=== PATIENT | female | born 1980 | race Caucasian/White ===

== ENCOUNTER 2017-03-01 05:28 | Inpatient (IN) | payer OTHER ==
[~2017-03-01] VITALS: Ht 162.6 cm; Wt 94.3 kg
[2017-03-01] MEDS ORDERED: Lactated Ringer's 1,000 ML IV PRN (07:03)
[2017-03-01] MEDS ORDERED: fentaNYL-PF 50 mCg/mL 2 mL Inj IVPUSH PRN (07:05)
[2017-03-01] MEDS ORDERED: Oxytocin 10 Unit/mL Inj IM PRN ×2 (07:05→12:10)
[2017-03-01] MEDS ORDERED: Hemorrhage Kit, Post Partum XX ONE ×2 (07:05→12:10)
[2017-03-01] MEDS ORDERED: Ondansetron 2 mg/mL 2 mL Inj IVPUSH PRN ×2 (07:05→09:35)
[2017-03-01] MEDS ORDERED: Methylergonovine 0.2 mg/mL Inj IM PRN ×2 (07:05→12:10)
[2017-03-01] MEDS ORDERED: Oxytocin 30 Units/500 mL LR 30 UNITS in IV Premix 1 EACH IV PRN ×3 (07:05→12:10)
[2017-03-01] MEDS ORDERED: Sodium Chloride LOK Flush 10 mL Syringe IVFLUSH PRN (07:05)
[2017-03-01] MEDS ORDERED: Carboprost 250 mCg/mL Inj IM PRN ×2 (07:05→12:10)
[2017-03-01 07:09] LABS: Mean Corpuscular Hemoglobin 29.4 pg (27.0-35.0); Mean Corpuscular Volume 88.7 fL (81-100)
[2017-03-01] MEDS ORDERED: BUPR150T8 PO (07:59)
[2017-03-01] MEDS ORDERED: OMEP40CA36 PO (07:59)
[2017-03-01] MEDS ORDERED: CALC-140 PO (07:59)
[2017-03-01] MEDS: Lactated Ringer's 1,000 ML IV SCH ×5 (08:06→20:09)
--- NOTE | 2017-03-01 08:32 | PCM.HPOB ---
Subjective Date of Service: March 01, 2017 Referring Provider: Admitting Physician: Johanna Archuleta MD Primary Care Physician: Arianne Akbar PA-C Attending Physician: Johanna Archuleta MD Chief Complaint Contractions and leakage of fluid History of Present History of Present Illness Patient is a 36-year-old 4 para 1-1-1-2 at 39 weeks and 6 days gestation with an estimated due date of 03/02/2017. Presented to the [facility] with contractions and spontaneous rupture membranes. Has a history of a delivery at 36 weeks. Past medical history significant for depression and marijuana use. He did have an abnormal 1 hour Glucola, but her three-hour glucose tolerance test was normal. labs: She is A positive, rubella immune, Varicella immune, RPR nonreactive, GBS negative, HIV negative, hepatitis B surface antigen negative, hepatitis C negative, OB History: (4), Para (2), Term (1), Pre-term (1) Obstetrical Complications: Other (Marijuanna use) Past Medical History Obstetrical History: 2 normal spontaneous vaginal deliveries Gynecologic History: Noncontributory Medical History: 1. History of depression 2. Marijuana use daily and remote history of methamphetamine use 3. History of PTD Hx Alcohol Use: No Hx Substance Use: Yes Past Family History Living Arrangement: with Family Genetic Screening/Counseling Genetic Screening/Counseling: Negative Allergy Coded Allergies: latex (Unverified Allergy, Mild, RASH, 03/01/17) Exam Lungs: Clear to Auscultation Heart: Exam Unremarkable Abdomen: Gravid (4-5/70/-2 , soft, anterior) Labs/Diagnostics Labs Laboratory Tests 72 Hours Test 03/01/17 06:00 White Blood Count 14.3th/mm3 (3.8-10.1) Red Blood Count 4.32mil/mm3 (3.90-5.20) Hemoglobin 12.7g/dL (12.0-15.6) Hematocrit 38.3% (35.0-46.0) Mean Corpuscular Volume 88.7fL (81-100) Mean Corpuscular Hemoglobin 29.4pg (27.0-35.0) Mean Corpuscular Hemoglobin Concent 33.2% (32.0-37.0) Red Cell Distribution Width 13.5% (12.3-15.4) Platelet Count 305bil/L (150-400) Maternal Blood Type: A (Positve) Group B Strep Results: Negative Previous Infant with GBS: No Rubella: Immune OB Intrapartum Assessment/Plan Problems: (1) 39 weeks gestation of Plan: Anticipate vaginal delivery. Continue to monitor. May have epidural if desires. Status: Acute ICD Code: Z3A.39 (2) SROM (spontaneous rupture of membranes) Plan: Pitocin Augmentation Status: Acute ICD Code: [id number] Johanna Archuleta MD March 01, 2017 08:31
[2017-03-01] MEDS ORDERED: Lactated Ringer's 500 ML IV ONE (09:34)
[2017-03-01] MEDS ORDERED: EPHEDrine Sulfate 50 mg/mL Inj IVPUSH PRN (09:35)
[2017-03-01] MEDS ORDERED: Atropine 1 mg/10 mL (Code) Syringe IVPUSH PRN (09:35)
[2017-03-01] MEDS ORDERED: fentaNYL 2 mCg/mL-Bupiv 0.125% 100 ML EPIDURAL SCH (09:35)
--- NOTE | 2017-03-01 10:10 | PCM.HPANE ---
Patient Data Date of Service: March 01, 2017 Surgeon Admitting Provider:Johanna Archuleta MD Attending Provider:Johanna Archuleta MD Primary Care Physician:Arianne Akbar PA-C Other Provider:Mae Lin Anesthesia Reason for Visit Term Labor TERM LABOR Ht/WT & BMI Height (Centimeters): 163 Weight (Kilograms): 94 Body Mass Index Allergies Coded Allergies: latex (Unverified Allergy, Mild, RASH, 03/01/17) Past Anesthesia History Anesthesia History: Denies:: Abnormal Airway, Anesthesia Reactions, Difficult Intubation, Fam Anesthesia Reaction, Fam Malignant Hypertherm, Malignant Hyperthermia Diabetes History Hx Diabetes?: No MRSA MRSA: No Medications Hypertension Medication: No Home Meds Incl Beta Mariah: No Reported Medications Bupropion ER (Wellbutrin SR)150 Mg Tablet.er150 Mg PO BID Ref 0 03/01/17 Omeprazole 40 Mg Capsule.dr40 Mg PO DAILY Ref 0 03/01/17 Calcium Carbonate/Vitamin D3 (Calcium + Vitamin D Tablet)1 Each Tablet1 Each PO DAILY 03/01/17 History History of ENT Problems?: No HEENT History: Denies:: Abnormal Airway Cataracts Difficult Intubation Dysphagia Glaucoma Hearing Problem Sinus Problem TMJ Denture Type: None Teeth Condition: Within Normal Limits Hx of Heart Problems?: No Cardiovascular History: Denies:: AICD Abdominal Aortic Aneurism Atrial Fibrillation Cardiac Surgery Chest Pain Congestive Heart Failure Coronary Artery Disease Edema Heart Murmur Hypertension Irregular Heartbeat Pacemaker Peripheral Vascular Rheumatic Fever Thrombophlebitis Valvular Heart Disease Hx of Respiratory Problem?: No Respiratory History: Denies:: Asthma COPD Chest Surgery Cough Dyspnea Emphysema Hemoptysis Oxygen Administration Pneumonia Pulmonary Embolism Tuberculosis Use of C-PAP Machine Use of Inhalers / NEBS Hx Neurologic Problems?: No Neurological History: Denies:: Alzheimer's Disease CVA Dementia Dizziness Headaches Multiple Sclerosis Parkinson's Disease Peripheral Neuropathy Seizures TIA Hx of GI Problems?: No Gastrointestinal History: Positive for:: Gastroesphageal Reflux Denies:: Cirrhosis Diverticulitis Gall Bladder Disease Gastrointestinal Bleeding Heartburn Hepatitis Hiatal Hernia Liver Disease Rectal Bleeding Hx of Problems?: No Genitourinary History: Denies:: HX of Hemodialysis Kidney Stones Urinary Tract Infection Female Hx: Positive for:: Currently Hx Musculoskeletal Problems?: No Hx Surgeries?: No Hx Alcohol Use: NoHx Substance Use: Yes Stop/Bang OTILIO Risk Assessment: Low Risk, <3 Yes Risk Assessment Category Category 1A: Patient has history of documented sleep apnea, and HAS NOT received any narcotic, sedative or anesthesia administration during this stay. Category 1B: Patient has history of documented sleep apnea, and HAS received any narcotic , sedative or anesthesia administration during this stay Category 2: Patient has SUSPECTED Obstructive Sleep Apnea, and HAS received any narcotic , sedative or anesthesia administration during this stay. Category 3: Patient has SUSPECTED Obstructive Sleep Apnea and HAS NOT received narcotic, sedative or anesthesia administration during this stay. Category 4: Outpatient in Procedural Areas with known sleep apnea or who screen positive for High Risk via the STOP/BANG questionnaire. Exam Exam General Appearance: Alert, Oriented X3, Cooperative, Mild Distress HEENT/AIRWAY: MP 1 Lungs: Clear to Auscultation Heart: Exam Unremarkable Meds/Labs/Diagnostics Admission Meds Current Medications Lactated Ringer's (Lr) 1,000 ml @ 125 mls/hr Q8H IV Last administered on 09:29; Start 03/01/17 at 08:06 Labs Test 03/01/17 06:00 White Blood Count 14.3th/mm3 (3.8-10.1) Red Blood Count 4.32mil/mm3 (3.90-5.20) Hemoglobin 12.7g/dL (12.0-15.6) Hematocrit 38.3% (35.0-46.0) Mean Corpuscular Volume 88.7fL (81-100) Mean Corpuscular Hemoglobin 29.4pg (27.0-35.0) Mean Corpuscular Hemoglobin Concent 33.2% (32.0-37.0) Red Cell Distribution Width 13.5% (12.3-15.4) Platelet Count 305bil/L (150-400) Plan Impression Patient chart reviewed, patient interviewed and anesthestic plan with risks, benefits, and alternatives discussed, and informed consent obtained. ASA Physical Status: ASA2 Mod Systemic Disease Anesthetic Plan: Epidural Bene/Risks/Altern/Consents: Yes HP Complete Prior to Induction: Yes Bladimir Mendez MD March 01, 2017 09:34
[2017-03-01] MEDS ORDERED: LANOlin HPA 7 Gm Ointment TOPICAL PRN (12:10)
[2017-03-01] MEDS ORDERED: Benzocaine (Dermoplast) 20% 60 Gm Spray TOPICAL PRN (12:10)
[2017-03-01] MEDS ORDERED: Witch Hazel-Glycerin Pads TOPICAL PRN (12:10)
--- NOTE | 2017-03-01 13:30 | OP ---
[address] [address] OPERATIVE REPORT PATIENT: KIESHA MINAYA : 1980 MR#: [id number] ADMIT: 03/01/2017 JOB ID: [id number] DATE OF SURGERY: 03/01/2017 DELIVERY NOTE: HISTORY/REASON FOR ADMISSION: This is a 36-year-old, G4, P 1-1-1-2 female at 39 plus six weeks gestational age. Estimated date of confinement of March 02, 2017, who is admitted to the [facility] with spontaneous rupture of membranes. Her was complicated by history of delivery at 36 weeks, history of depression and depression, and daily marijuana use through this . She also has a remote history of methamphetamine use previously, and urine drug screens have been positive for marijuana only. Meth use was in the remote past, 17 years prior. LABORATORY DATA: Shows blood type A-positive, antibody screen negative, rubella immune, varicella immune, hep B surface antigen negative, RPR nonreactive, HIV negative, and GBS negative. The patient was admitted on the morning of March 01, complaining of spontaneous rupture. She was noted to be grossly ruptured and checked and noted to be 4-5 cm dilated. She was then admitted and an epidural was placed per her request. She very rapidly progressed following her epidural and was quite uncomfortable despite having an epidural in place. She was checked by the nurse during this time and noted to be complete and delivering. PREOPERATIVE DIAGNOSIS(ES): 1. A 39 plus 6 week intrauterine in active labor. 2. History of marijuana use. 3. Remote history of methamphetamine use. 4. History of depression and depression. POSTOPERATIVE DIAGNOSIS(ES): 1. A 39 plus 6 week intrauterine in active labor. 2. History of marijuana use. 3. Remote history of methamphetamine use. 4. History of depression and depression. PROCEDURE PERFORMED: Spontaneous vaginal delivery and delivery of the placenta following delivery of the . SURGEON: Elin Zhong MD. ANESTHESIA: Epidural. ESTIMATED BLOOD LOSS: 300 cc. FLUID REPLACEMENT: Crystalloid in labor. FINDINGS: Liveborn male , born on March [birth year], 2015, at 11:47 hours. Weight is currently pending but average gestational age and Apgars of 8 at one minute, 9 at five minutes. COMPLICATIONS: None apparent. PROCEDURE NOTE: The patient was noted to be delivering by the nurses. The physician was called. By the time I arrived, the had been delivered and the cord was clamped and cut. Pitocin was then started per protocol and the placenta delivered intact spontaneously and was passed off the table. Examination of the vaginal vault and perineum revealed no lacerations and the uterus was firm with minimal vaginal bleeding on fundal massage. The patient tolerated this procedure well. Recovered in labor and delivery with her infant. All sponge, needle, and instrument counts were correct.
--- NOTE | 2017-03-01 15:48 | PCM.ANEP1 ---
Post Anesthesia PACU Phase 1 Assessment Date of Service: March 01, 2017 Vital Signs VSS see nurses notes Anesthetic Administered: Epidural Level of Alertness: Awake, talking AYALA's with Equal Strength: Yes Pain: No Nausea or Vomiting: No CV Function & Hydration Stable: Yes Airway Device: none Oxygen Delivery: Room Air Lungs: Clear to Auscultation Dermatome Level: Full Sensation PACU Phase 2 Assessment Complications: No Follow up Care: N/A Patient Instructions Provided: Yes Bladimir Mendez MD March 01, 2017 15:47
[2017-03-01] MEDS: Ascorbic Acid 500 mg Tablet PO SCH (16:17)
[2017-03-01] MEDS ORDERED: Sodium Chloride LOK Flush 10 mL Syringe IVFLUSH SCH (16:30)
[2017-03-01] MEDS: oxyCODONE-Acetamin 5-325 mg Tablet PO PRN (20:10)
[2017-03-02] MEDS: Lactated Ringer's 1,000 ML IV SCH ×3 (00:06→04:09)
[2017-03-02] MEDS: oxyCODONE-Acetamin 5-325 mg Tablet PO PRN ×2 (01:59→08:07)
[2017-03-02 06:15] LABS: Mean Corpuscular Hemoglobin 29.3 pg (27.0-35.0); Mean Corpuscular Volume 90.4 fL (81-100)
[2017-03-02] MEDS: Ascorbic Acid 500 mg Tablet PO SCH (08:06)
--- NOTE | 2017-03-02 12:08 | NUR ---
[facility] social work assessment 03/02/17 MOB and FOB name: Lyudmila Michaud Baby's name: Jean Claude Michaud Reason for ROUSTABOUT PUSHER consult: THC use during . CUrrent living situation: MOB and FOJoe live in [place] with their two previous children ages 2 and 16. Previous children: MISA reports two previous children, Terrance Michaud aged 2 and Clara Astorga aged 16. MOB reports no previous CPS involvement. Substance abuse history: MISA reports methamphetamine use 17 years ago prior to delivery of her 16 year old daughter. MISA reports using marijuana to focus as she reports ADHD and prescription amphetamines trigger a desire to use methamphetamine. MISA has no previous treatment history. MOB aware of CPS report due to THC use. Mental health history: MISA reports previous depression with symptoms of frequent tearfulness however she has been maintained on wellbutrin for many years with good effect. Pt denies current and previous suicidal and homicidal thoughts. No previous suicide attempts or psychiatric admissions. Source of income: MISA stays at home and NICOLE works for [employer]. MISA is enrolled with [facility] but declines any other supportive assistance. DV/abuse history: MISA denies current and previous abuse. Supports: MISA reports that LYNNETTEB and her social support are strong and she has no concerns for support. Assessment/disposition: ROUSTABOUT PUSHER consult requested due to current THC use and positive UDS. ROUSTABOUT PUSHER met with MOB and FOB who are appropriate yet somewhat defensive due to feelings of judgement. MISA has remote history of methamphetamine use that is non-contributory presently. MISA had good care and has no additional needs. No RN or MD concerns. ROUSTABOUT PUSHER discussed hospital policy of CPS report which MOB and FOB were quite frustrated with but had no concerns over. NO additional needs identified. AMBER Mera
--- NOTE | 2017-03-02 13:21 | PCM.DIMED ---
Discharge Instructions Date of Service March 02, 2017 Dates of Hospitalization March 01, 2017 at 05:35 Diet Discharge Diet: No restrictions Activity Discharge Activity: No restrictions Call your provider Call your provider for: Fever or Chills, Shortness of breath, Bleeding, Chest pain, Vomitting, Excessive diarrhea, Weakness (unilateral) Patient Instructions Follow-up with PCP in: 6 weeks Yuan Morales MD March 02, 2017 13:21
[2017-03-02] MEDS ORDERED: IBUP800T28 PO (13:23)
[2017-03-02] MEDS ORDERED: OXYC1TAB24 PO (13:23)
[2017-03-02] MEDS ORDERED: FERR-74 PO (13:23)
[2017-03-02] MEDS ORDERED: DOCU-41 PO (13:23)
[2017-03-02 13:33] VITALS: BP 133/76; PULSE 66; RESP 18
--- NOTE | 2017-03-02 13:50 | DIS ---
[address] [address] DISCHARGE SUMMARY PATIENT: KIESHA MINAYA : 1980 MR#: [id number] ADMIT: 03/01/2017 JOB ID: [id number] DIS: 03/02/2017 ADMITTING DIAGNOSIS: A 36-year-old, 4, para 2, at 39 weeks and 6 days with spontaneous rupture of membranes. DISCHARGE DIAGNOSIS: A 36-year-old, 4, para 3, status post spontaneous vaginal delivery at term. HOSPITAL COURSE: The patient is a 36-year-old, 4, para 3 now, who came to Labor and Delivery with complaint of spontaneous rupture of membranes at 39 weeks and 6 days. The membranes rupture was confirmed by AmniSure test. The laboratories where unremarkable, she is GBS negative. The patient was grossly ruptured and 4-5 cm dilated. She was admitted for delivery. The patient underwent spontaneous vaginal delivery on March 01, 2017 at 11:47 a.m., delivered male with Apgars 8 at 1 minute and 9 at 5 minutes. No lacerations were noted after delivery of the . Estimated blood loss was 300 mL. On the following day, day one, March 02, 2017, the patient was doing well, ambulating, breast-feeding, not complaining of any pain. The fundus was firm, there was no vaginal bleeding or abnormal vaginal discharge. There was no problems with activities and breast feeding. The patient was afebrile. Labs showed WBC count of 11.4, hemoglobin 11.6, hematocrit 35.8, platelet count 259. The patient was sent home on day one, with all discharge criteria met. She received discharge medications including Motrin 800 mg p.o. t.i.d. p.r.n., Colace 100 mg p.o. b.i.d., ferrous sulfate 325 mg p.o. daily. Followup visit in the clinic is scheduled in six weeks.
== END 2017-03-02 14:23 | disposition home or self-care (01) | DRG 775 ==
LOC: FBCO 05:28 → FBC 05:35
PROVIDERS: ADMIT Obstetrics & Gynecology; ATTEND Obstetrics & Gynecology
PROC: 10E0XZZ Delivery of Products of Conception, External Approach (ICD-10-PCS; principal; 2017-03-01)
DX: O99.324 Drug use complicating childbirth (principal); F12.90 Cannabis use, unspecified, uncomplicated; Z3A.39 39 weeks gestation of pregnancy; Z37.0 Single live birth